=== PATIENT | male | born 1975 | race Caucasian/White ===

== ENCOUNTER 2017-01-01 14:20 | Emergency (ER) | payer BC ==
[~2017-01-01] VITALS: Ht 172.7 cm; Wt 75.0 kg
[2017-01-01 14:22] VITALS: BP 133/82; PULSE 84; RESP 15; TEMP 98.2; O2SAT 98
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
[2017-01-01] MEDS ORDERED: ONDANSETRON ODT 4 MG TAB PO/SL ONE (16:00)
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
[2017-01-01] MEDS ORDERED: PROPARACAINE HCL 0.5% OPHT SOLN 15 ML BTL RIGHT EYE ONE (18:00)
[2017-01-01] MEDS ORDERED: PRED1SUS RIGHT EYE (18:12)
--- NOTE | 2017-01-02 18:31 | EKG ---
Date Performed: 01/01/2017 Time Performed: 17:24:16 PTAGE: 41 years EKG: SINUS BRADYCARDIA BORDERLINE ECG NO PREVIOUS TRACING DOCTOR: Slava Glez Interpretating Date/Time 01/02/2017 18:30:41
== END 2017-01-01 18:43 | disposition home or self-care (01) ==
LOC: NEPD 14:20
DX: H20.9 Unspecified iridocyclitis (principal); S02.2XXA Fracture of nasal bones, initial encounter for closed fracture; R55 Syncope and collapse; R00.1 Bradycardia, unspecified; Y04.0XXA Assault by unarmed brawl or fight, initial encounter; Z72.0 Tobacco use; Z79.899 Other long term (current) drug therapy
CPT/HCPCS: 70450; 70486; 93005; 99285